=== PATIENT | male | born 1995 | race Caucasian/White ===

== ENCOUNTER 2016-07-24 01:59 | Emergency (ER) | payer MEDICAID, OTHER ==
[~2016-07-24] VITALS: Ht 160 cm; Wt 63.5 kg
--- NOTE | 2016-07-24 02:02 | NUR ---
PT WALKED INTO ER C/O REDNESS AND IRRITATION ON RIGHT EYE X1 DAY, PT ALERT, ORIENTED X 4, NO RESP DISTRESS NOTED OR REPORTED UPON ASSESSMENT. MD AT BEDSIDE...
[2016-07-24] MEDS ORDERED: FLUORESCEIN SODIUM 1 MG STRIP ONE (02:43)
[2016-07-24] MEDS ORDERED: TETRACAINE HCL 0.5% OPHT DROP 2 ML BOTTLE ONE (02:43)
[2016-07-24] MEDS ORDERED: FLUORESCEIN SODIUM 1 MG STRIP OP ONE (02:45)
[2016-07-24] MEDS ORDERED: TETRACAINE HCL 0.5% OPHT DROP 2 ML BOTTLE OP ONE (02:45)
--- NOTE | 2016-07-24 03:01 | NUR ---
Patient discharged to home in stable conditon. Written and verbal after care instructions given. Patient verbalizes understanding of instructions. Pt walked out of ER unassisted with belongings at side...
[2016-07-24 03:02] VITALS: BP 129/95
== END 2016-07-24 03:03 | disposition home or self-care (01) ==
LOC: ER 02:03
DX: H16.311 Corneal abscess, right eye (principal); F12.10 Cannabis abuse, uncomplicated; F17.200 Nicotine dependence, unspecified, uncomplicated; F41.9 Anxiety disorder, unspecified
CPT/HCPCS: A4663

== ENCOUNTER 2016-10-02 04:00 | Emergency (ER) | payer MEDICAID ==
[~2016-10-02] VITALS: Ht 165.1 cm; Wt 68.0 kg
--- NOTE | 2016-10-02 04:23 | NUR ---
Patient eloped from facility. ER physician notified.
== END 2016-10-02 04:31 | disposition left against medical advice (07) ==
LOC: ER 04:03
DX: K04.7 Periapical abscess without sinus (principal); J02.9 Acute pharyngitis, unspecified; F41.9 Anxiety disorder, unspecified; F10.20 Alcohol dependence, uncomplicated; F17.200 Nicotine dependence, unspecified, uncomplicated; F19.10 Other psychoactive substance abuse, uncomplicated
CPT/HCPCS: A4663

== ENCOUNTER 2016-11-28 10:54 | Emergency (ER) | payer MEDICAID ==
[~2016-11-28] VITALS: Ht 160 cm; Wt 63.5 kg
--- NOTE | 2016-11-28 11:14 | NUR ---
Patient discharged to home in stable conditon. Written and verbal after care instructions given. Patient verbalizes understanding of instructions.
== END 2016-11-28 11:14 | disposition home or self-care (01) ==
LOC: ER 10:54
DX: K04.7 Periapical abscess without sinus (principal); L03.211 Cellulitis of face
CPT/HCPCS: 99281; A4663

== ENCOUNTER 2017-01-25 23:09 | Emergency (ER) | payer MEDICAID ==
[~2017-01-25] VITALS: Ht 160 cm; Wt 65.8 kg
--- NOTE | 2017-01-25 23:29 | NUR ---
Pt ambulated to room with steady gait. Pt c/o severe upper and lower right sided dental pain. Sts intermittent for approx 1 week but became increasingly worse over last two days. Dr. Carbone at bedside for MSE.
--- NOTE | 2017-01-25 23:42 | NUR ---
Pt seen by Dr. Carbone. Pt stable for discharge per MD. Pt given [facility] and dental referrals. Pt verbalized understanding of dc instructions. Pt ambulated out of er with steady gait.
[2017-01-25 23:43] VITALS: BP 137/88
== END 2017-01-25 23:43 | disposition home or self-care (01) ==
LOC: ER 23:09
DX: K02.9 Dental caries, unspecified (principal)
CPT/HCPCS: 99283; A4663

== ENCOUNTER 2017-02-25 11:41 | Emergency (ER) | payer MEDICAID ==
[~2017-02-25] VITALS: Ht 160 cm; Wt 63.5 kg
--- NOTE | 2017-02-25 12:46 | NUR ---
pt was evaluated by dr Li. pt was d/c to home. d/c instructions given to the pt.
[2017-02-25 12:47] VITALS: BP 125/76
== END 2017-02-25 12:48 | disposition home or self-care (01) ==
LOC: ER 11:46
DX: K02.9 Dental caries, unspecified (principal); F17.200 Nicotine dependence, unspecified, uncomplicated
CPT/HCPCS: 99283; A4663

== ENCOUNTER 2017-10-15 22:02 | Emergency (ER) | payer MEDICAID ==
--- NOTE | 2017-10-15 22:36 | NUR ---
PATIENT WAS CALLED SEVERAL TIMES. PATIENT WAS NOT PRESENT. PATIENT WAS NOT TRIAGED OR SEEN BY ERMD
== END 2017-10-15 22:38 | disposition left against medical advice (07) ==
LOC: ER 22:03
DX: Z53.21 Procedure and treatment not carried out due to patient leaving prior to being seen by health care provider (principal)

== ENCOUNTER 2018-02-02 01:15 | Emergency (ER) | payer MEDICAID ==
[~2018-02-02] VITALS: Ht 160 cm; Wt 63.5 kg
--- NOTE | 2018-02-02 01:43 | NUR ---
PT A/OX4, RESPONSIVE TO VERBAL AND TACTILE STIMULI. PT C/O TOOTHACHE THAT STARTED ~2 WEEKS AGO, NO PROVOKING FACTOR, SHARP IN QUALITY, DOES NOT RADIATE, 11/10, CONSTANT. PER PT AND OBSERVATION, TOOTH IS BROKEN ON LL JAW. L JAW DOES APPEAR TO BE SWOLLEN. PT DENIES C/P, SOB, N/V. PT SELF-AMBULATED TO BED WITHOUT DIFFICULTY. BED IN LOW AND LOCKED POSITION WITH BILATERAL SIDERAILS UP.
--- NOTE | 2018-02-02 02:22 | NUR ---
Patient discharged to home in stable conditon. Written and verbal after care instructions given. Patient verbalizes understanding of instructions. PT D/C WITH PRESCRIPTION FOR KEFLEX. ALL BELONGINGS TAKEN W/ PT. PT SELF AMBULATED WITHOUT DIFFICULTY.
[2018-02-02 02:23] VITALS: BP 112/62
== END 2018-02-02 02:20 | disposition home or self-care (01) ==
LOC: ER 01:19
DX: K04.7 Periapical abscess without sinus (principal); Z59.0 Homelessness
CPT/HCPCS: A4663

== ENCOUNTER 2018-06-07 01:08 | Emergency (ER) | payer MEDICAID ==
[~2018-06-07] VITALS: Ht 160 cm; Wt 68.0 kg
--- NOTE | 2018-06-07 01:16 | NUR ---
Patient comes in from home for "suture recheck". Patient states he wants his sutures evaluated for possible infection or other complications. Denies pain , fever, drainage, or acute distress.
--- NOTE | 2018-06-07 01:31 | NUR ---
Patient discharged to home in stable conditon. Written and verbal after care instructions given. Patient verbalizes understanding of instructions. Ambulated from ER with stable gait. No acute distress noted. VSS. All belongings with patient.
[2018-06-07 01:32] VITALS: BP 131/80
== END 2018-06-07 01:33 | disposition home or self-care (01) ==
LOC: ER 01:10
DX: S51.812D Laceration without foreign body of left forearm, subsequent encounter (principal); K04.7 Periapical abscess without sinus; F17.200 Nicotine dependence, unspecified, uncomplicated; X58.XXXD Exposure to other specified factors, subsequent encounter
CPT/HCPCS: A4663